=== PATIENT | male | born 1995 | race African-American/Black ===

== ENCOUNTER 2017-04-26 12:05 | Emergency (ER) | payer OTHER ==
[~2017-04-26] VITALS: Ht 175.3 cm; Wt 100.0 kg
[2017-04-26 12:13] VITALS: BP 160/75; PULSE 114; RESP 15; TEMP 98.4; O2SAT 98
[2017-04-26] MEDS ORDERED: TETANUS/DIPHTHERIA TOXOID ADULT 0.5 ML VIAL IM ONE (12:30)
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
[2017-04-26] MEDS ORDERED: LIDOCAINE 2%/EPINEPHrine 1:100,000 20ML MDV NERV BLOCK ONE (13:15)
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
[2017-04-26] MEDS ORDERED: BACT800T5 PO (13:44)
[2017-04-26] MEDS ORDERED: IBUP800T23 PO (13:44)
[2017-04-26] MEDS ORDERED: CEPH-460 PO (13:44)
[2017-04-26] MEDS ORDERED: ceFAZolin INJ 1,000 MG VIAL IM ONE (14:00)
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
== END 2017-04-26 14:26 | disposition home or self-care (01) ==
LOC: NEPD 12:05
DX: S91.001A Unspecified open wound, right ankle, initial encounter (principal); S91.041A Puncture wound with foreign body, right ankle, initial encounter; W34.00XA Accidental discharge from unspecified firearms or gun, initial encounter; Y93.01 Activity, walking, marching and hiking; Y92.410 Unspecified street and highway as the place of occurrence of the external cause; Z23 Encounter for immunization
CPT/HCPCS: 10120; 73610; 90471; 90714; 96372; 99284; E0113; J0690

== ENCOUNTER 2017-04-28 15:06 | Emergency (ER) | payer OTHER ==
[~2017-04-28] VITALS: Ht 177.8 cm; Wt 90.0 kg
[~2017-04-28 15:06] MED LIST: BACT800T5 PO; CEPH-460 PO; IBUP800T23 PO
[2017-04-28 15:07] VITALS: BP 134/77; PULSE 106; RESP 14; TEMP 98.4; O2SAT 98
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
== END 2017-04-28 16:56 | disposition home or self-care (01) ==
LOC: NEPK 15:06
DX: S91.001D Unspecified open wound, right ankle, subsequent encounter (principal); W34.00XD Accidental discharge from unspecified firearms or gun, subsequent encounter
CPT/HCPCS: 99281